=== PATIENT | female | born 1955 | race Caucasian/White ===

== ENCOUNTER 2016-09-15 09:54 | Emergency (ER) | payer BC ==
[2016-09-15 10:00] VITALS: RESP 18
--- NOTE | 2016-09-15 10:31 | ED ---
General Adult HPI - General Chief complaint: Headache Stated complaint: headache Time Seen by Provider: 09/15/16 10:08 Source: patient, RN notes reviewed Mode of arrival: ambulatory Limitations: no limitations - History of Present Illness Initial comments: Patient 61-year-old female who presents emergency room today with a chief complaint of rash to the right side of her face. She states she woke up 5 days ago with sharp type pain to the right side of her head. Does admit that she's been having sharp pain and discomfort with palpation to the right side. States it's very sensitive the skin. States she noticed a red spot to the right side of her scalp. States she's had a few other spots on the right side down the bishop. She states she scratched appointment did go away. She states that she is on prednisone due to history of sarcoidosis. Patient states she is unsure if this is related. Patient admits that she's had headaches similar to this in the past. Admits to a sharp type pain that comes and goes. States she has a history of Tamika Montes unable take ibuprofen that she used to take for these headaches. She denies any other complaints or symptoms. Patient denies any recent fever, chills, shortness of breath, chest pain, back pain, abdominal pain, nausea or vomiting, numbness or tingling, dysuria or hematuria, constipation or diarrhea, visual changes, or any other complaints. - Related Data Home Medications Medication Instructions Recorded Confirmed Acetaminophen [Tylenol] 1,000 mg PO Q6H PRN 09/15/16 09/15/16 Alendronate Sodium [Fosamax] 70 mg PO SA 09/15/16 09/15/16 Apixaban [Eliquis] 5 mg PO BID 09/15/16 09/15/16 Atorvastatin [Lipitor] 40 mg PO HS 09/15/16 09/15/16 Calcium Carbonate/Vitamin D3 1 tab PO BID 09/15/16 09/15/16 [Calcium 600-Vit D3 400 Caplet] Losartan Potassium [Cozaar] 12.5 mg PO DAILY 09/15/16 09/15/16 Magnesium Chloride [Mag64] 64 mg PO DAILY 09/15/16 09/15/16 Metoprolol Succinate [Toprol XL] 25 mg PO DAILY 09/15/16 09/15/16 Mycophenolate Mofetil [Cellcept] 1,500 mg PO BID 09/15/16 09/15/16 Spironolactone [Aldactone] 25 mg PO Q48H 09/15/16 09/15/16 metFORMIN HCL 1,000 mg PO DAILY 09/15/16 09/15/16 predniSONE 10 mg PO DAILY 09/15/16 09/15/16 Previous Rx's Medication Instructions Recorded Acetaminophen-Codeine 300-30mg 1 each PO Q6H PRN #10 tablet 09/15/16 [Tylenol #3] Cephalexin [Keflex] 500 mg PO Q12HR 10 Days 09/15/16 Allergies Allergy/AdvReac Type Severity Reaction Status Date / Time azithromycin Allergy Unknown Verified 09/15/16 10:01 hydrocodone bitartrate Allergy Hallucinati Verified 09/15/16 10:01 [From Lortab] ons levofloxacin [From Levaquin] Allergy Unknown Verified 09/15/16 10:01 Penicillins Allergy Rash/Hives Verified 09/15/16 10:01 Quinolones Allergy Unknown Verified 09/15/16 10:01 Sulfa (Sulfonamide Allergy Rash/Hives Verified 09/15/16 10:01 Antibiotics) tetracycline [Tetracycline] Allergy throat Verified 09/15/16 10:01 swelling Tetracyclines Allergy Unknown Verified 09/15/16 10:01 QT prolonging drugs Allergy Unknown Uncoded 09/15/16 10:01 Review of Systems ROS Statement: Those systems with pertinent positive or pertinent negative responses have been documented in the HPI. ROS Other: All systems not noted in ROS Statement are negative. Past Medical History Past Medical History: Asthma, Heart Failure, Hypertension, Osteoarthritis (OA) Additional Past Medical History / Comment(s): pacemaker, sarcoditis. History of Any Multi-Drug Resistant Organisms: None Reported Past Surgical History: AICD, Pacemaker, Tonsillectomy, Tubal Ligation Additional Past Surgical History / Comment(s): ractal surgery Past Anesthesia/Blood Transfusion Reactions: No Reported Reaction Type of Cardiac Device: Unknown Device Placement Date:: 07/29/2012 Past Psychological History: Depression Smoking Status: Never smoker Past Alcohol Use History: None Reported Past Drug Use History: None Reported General Exam - General Exam Comments Initial Comments: General: The patient is awake and alert, in no distress, and does not appear acutely ill. Eye: Pupils are equal, round and reactive to light, extra-ocular movements are intact. No nystagmus. There is normal conjunctiva bilaterally. No signs of icterus. Ears, nose, mouth and throat: There are moist mucous membranes and no oral lesions. Neck: The neck is supple, there is no tenderness or JVD. Cardiovascular: There is a regular rate and rhythm. No murmur, rub or gallop is appreciated. Respiratory: Lungs are clear to auscultation, respirations are non-labored, breath sounds are equal. No wheezes, stridor, rales, or rhonchi. Gastrointestinal: Soft, non-distended, non-tender abdomen without masses or organomegaly noted. There is no rebound or guarding present. No CVA tenderness. Bowel sounds are unremarkable. Musculoskeletal: Normal ROM, no tenderness. Strength 5/5. Sensation intact. Pulses equal bilaterally 2+. Neurological: A&O x 3. CN II-XII intact, There are no obvious motor or sensory deficits. Coordination appears grossly intact. Speech is normal. Skin: Red raised areas 1 to the right scalp measuring approximately a centimeter and half. A few scattered spots on the right side going down to the right side of the chin area. He is tender on palpation Psychiatric: Cooperative, appropriate mood & affect, normal judgment. Limitations: no limitations Course Vital Signs 09/15/16 09:55 Temperature 97.6 F Pulse Rate 77 Respiratory 18 Rate Blood Pressure 132/79 O2 Sat by Pulse 96 Oximetry Medical Decision Making - Medical Decision Making Case was discussed and seen by attending physician Dr. Ryan. Patient will be given pain medication here in the emergency room for her headache. Options were discussed about IV/IM medication versus oral. She stopped to take oral medications states she would like to try Tylenol codeine. She will be given a short prescription. She also placed on antibiotics cover for infection. Patient is advised follow-up the family doctor. She states she has an appointment tomorrow morning. Patient advised return for any other concerns. Disposition Clinical Impression: Headache, Rash Disposition: HOME SELF-CARE Condition: Good Instructions: Acute Headache (ED) Additional Instructions: Please use medication as discussed. Please follow-up with family doctor tomorrow with scheduled appointment. Please return to emergency room if the symptoms increase or worsen or for any other concerns. Prescriptions: Acetaminophen-Codeine 300-30mg [Tylenol #3] 1 each PO Q6H PRN #10 tablet PRN Reason: Pain Cephalexin [Keflex] 500 mg PO Q12HR 10 Days Time of Disposition: 11:19
[2016-09-15] MEDS ORDERED: ACET/COD 300 MG/30 MG STARTER PACK 6 TAB BTL PO STA (11:14)
[2016-09-15 11:35] VITALS: BP 130/80; PULSE 72; TEMP 97
== END 2016-09-15 11:34 | disposition home or self-care (01) ==
LOC: EC 09:54
DX: R51 Headache (principal); R21 Rash and other nonspecific skin eruption; M19.90 Unspecified osteoarthritis, unspecified site; I50.9 Heart failure, unspecified; I10 Essential (primary) hypertension; D86.9 Sarcoidosis, unspecified; Z79.899 Other long term (current) drug therapy; Z95.0 Presence of cardiac pacemaker; Z79.01 Long term (current) use of anticoagulants; Z79.84 Long term (current) use of oral hypoglycemic drugs; Z88.0 Allergy status to penicillin; Z88.2 Allergy status to sulfonamides; Z88.8 Allergy status to other drugs, medicaments and biological substances; Z88.1 Allergy status to other antibiotic agents; Z88.5 Allergy status to narcotic agent
CPT/HCPCS: 99283

== ENCOUNTER → 2017-04-03 | Outpatient (CLI) | payer BC ==
--- NOTE | 2017-04-03 13:58 | XR ---
EXAMINATION TYPE: XR knee complete bilateral DATE OF EXAM: 04/03/2017 COMPARISON: NONE HISTORY: Bilateral knee pain TECHNIQUE: 3 views knees each FINDINGS: There is medial femoral condylar and tibial plateau spurring at the right knee joint space. Moderate narrowing is present of the joint space. There is a small amount spurring from the medial tibial plateau left knee. Mild narrowing of the join t space is present. No joint effusions are evident. No acute fractures are evident. IMPRESSION: 1. Mild medial compartment degenerative changes, right greater than left.
== END | disposition home or self-care (01) ==
LOC: RADXRYALE 13:08
PROVIDERS: ATTEND Internal Medicine
DX: M25.862 Other specified joint disorders, left knee (principal); M25.861 Other specified joint disorders, right knee; M25.561 Pain in right knee; M25.562 Pain in left knee

== ENCOUNTER 2019-03-02 04:50 | Emergency (ER) | payer MEDICARE ==
[2019-03-02 05:00] VITALS: TEMP 98.2
[2019-03-02 05:24] LABS: Basophils # (A) 0.1 k/uL (0-0.2); Basophils % (A) 1 %; Eosinophils # (A) 0.2 k/uL (0-0.7); Eosinophils % (A) 2 %; HCT 41.2 % (34.0-46.0); Lymphocytes # (A) 0.8 k/uL (1.0-4.8); Lymphocytes % (A) 8 %; MCHC 31.6 g/dL (31.0-37.0); MCV 85.6 fL (80.0-100.0); Mean Platelet Volume 7.5; Monocytes # (A) 0.5 k/uL (0-1.0); Monocytes % (A) 5 %; Neutrophils # (A) 8.8 k/uL (1.3-7.7); Neutrophils % (A) 84 %; Platelet Count 201 k/uL (150-450); RBC 4.81 m/uL (3.80-5.40); RDW 15.4 % (11.5-15.5); WBC 10.5 k/uL (3.8-10.6)
[2019-03-02 05:33] LABS: Albumin 4.4 g/dL (3.5-5.0); Calcium 10.3 mg/dL (8.4-10.2); Magnesium 1.7 mg/dL (1.6-2.3); Potassium 3.9 mmol/L (3.5-5.1); Total Bilirubin 0.8 mg/dL (0.2-1.3); Total Protein 7.2 g/dL (6.3-8.2)
--- NOTE | 2019-03-02 05:38 | CT ---
EXAM: CT Head Without Intravenous Contrast CLINICAL HISTORY: ITS.REASON CT Reason: Pain TECHNIQUE: Axial computed tomography images of the head/brain without intravenous contrast. CTDI is 45.2 mGy and DLP is 999.3 mGy-cm. This CT exam was performed using one or more of the following dose reduction techniques: automated exposure control, adjustment of the mA and/or kV according to patient size, and/or use of iterative reconstruction technique. COMPARISON: None. FINDINGS: Brain: Unremarkable. No hemorrhage. No significant white matter disease. No edema. Ventricles: Unremarkable. No ventriculomegaly. Bones/joints: Unremarkable. No acute fracture. Soft tissues: Small left parietal scalp hematoma. Sinuses: Unremarkable as visualized. No acute sinusitis. Mastoid air cells: Unremarkable as visualized. No mastoid effusion. IMPRESSION: 1. No intracranial hemorrhage or other acute intracranial abnormality. 2. Small left parietal scalp hematoma. EXAM: CT Cervical Spine Without Intravenous Contrast CLINICAL HISTORY: ITS.REASON CT Reason: Pain TECHNIQUE: Axial computed tomography images of the cervical spine without intravenous contrast. CTDI is 13.2 mGy and DLP is 297.6 mGy-cm. This CT exam was performed using one or more of the following dose reduction techniques: automated exposure control, adjustment of the mA and/or kV according to patient size, and/or use of iterative reconstruction technique. COMPARISON: None. FINDINGS: Vertebrae: Unremarkable. No acute fracture. Discs/spinal canal/neural foramina: Multilevel degenerative change throughout the cervical spine which yields varying degrees of foraminal narrowing. No high-grade spinal canal stenosis. Soft tissues: Unremarkable. Thyroid: Left thyroid hypodense nodule measuring 1.8 cm. IMPRESSION: 1. No fracture or traumatic malalignment of the cervical spine. 2. Left thyroid hypodense nodule measuring 1.8 cm. Consider evaluation with dedicated thyroid ultrasound as clinically warranted.
--- NOTE | 2019-03-02 05:40 | XR ---
EXAM: XR Chest, 2 Views CLINICAL HISTORY: ITS.REASON XR Reason: syncope TECHNIQUE: Frontal and lateral views of the chest. COMPARISON: Chest radiograph 08/31/2015. FINDINGS: Lungs: Unremarkable. No consolidation. Pleural space: Unremarkable. No pneumothorax. Heart: Cardiomegaly. Mediastinum: Unremarkable. Bones/joints: Degenerative changes seen in the thoracic spine. Tubes, lines and devices: Cardiac pacing device. IMPRESSION: 1. No acute cardiopulmonary abnormality. 2. Cardiomegaly.
--- NOTE | 2019-03-02 07:15 | ED ---
Syncope HPI - General Chief Complaint: Fall Stated Complaint: Fall Time Seen by Provider: 03/02/19 05:00 Source: patient, EMS Mode of arrival: ambulatory - History of Present Illness Initial Comments: This patient is 63-year-old woman who presents after she had a syncopal episode at work. The patient states she does have a pacer/AICD device related to disordered heart rhythm. She states that she had been at work and then felt like she was going to pass out. She has had this happen before the last time was approximately 2-3 years ago. She states that she felt very lightheaded. She attempted to wean over something and then woke up on the floor. She denies significant injury in the fall. She is not experiencing chest pain, dyspnea, palpitations, diaphoresis or nausea. She did not experience a shock sensation. MD Complaint: loss of consciousness, collapsed -: minutes(s) Prodromal Symptoms: lightheaded -: second(s) Witnessed: yes - by bystander Injuries Sustained Associated with Event: None Current Symptoms: none, back to baseline History: pacemaker, AICD Context: during exertion Treatments Prior to Arrival: none - Related Data Home Medications Medication Instructions Recorded Confirmed Apixaban [Eliquis] 5 mg PO BID 09/15/16 03/02/19 Calcium Carbonate/Vitamin D3 1 tab PO BID 09/15/16 03/02/19 [Calcium 600-Vit D3 400 Caplet] Losartan Potassium [Cozaar] 25 mg PO DAILY 09/15/16 03/02/19 Magnesium Chloride [Mag64] 64 mg PO DAILY 09/15/16 03/02/19 Spironolactone [Aldactone] 25 mg PO Q48H 09/15/16 03/02/19 Metoprolol Succinate [Toprol XL] 50 mg PO DAILY 03/02/19 03/02/19 Allergies Allergy/AdvReac Type Severity Reaction Status Date / Time azithromycin Allergy Unknown Verified 03/02/19 07:41 hydrocodone bitartrate Allergy Hallucinati Verified 03/02/19 07:41 [From Lortab] ons levofloxacin [From Levaquin] Allergy Unknown Verified 03/02/19 07:41 Penicillins Allergy Rash/Hives Verified 03/02/19 07:41 Quinolones Allergy Unknown Verified 03/02/19 07:41 Sulfa (Sulfonamide Allergy Rash/Hives Verified 03/02/19 07:41 Antibiotics) tetracycline [Tetracycline] Allergy throat Verified 03/02/19 07:41 swelling Tetracyclines Allergy Unknown Verified 03/02/19 07:41 QT prolonging drugs Allergy Unknown Uncoded 09/15/16 10:01 Review of Systems ROS Statement: Those systems with pertinent positive or pertinent negative responses have been documented in the HPI. ROS Other: All systems not noted in ROS Statement are negative. Constitutional: Denies: fever, chills, weakness Eyes: Denies: vision change Respiratory: Denies: cough, dyspnea Cardiovascular: Reports: syncope. Denies: chest pain, palpitations, dyspnea on exertion, orthopnea, edema Gastrointestinal: Denies: abdominal pain, nausea, vomiting Genitourinary: Denies: dysuria, hematuria Musculoskeletal: Denies: back pain Skin: Denies: rash Neurological: Denies: headache, weakness, numbness Hematological/Lymphatic: Reports: easy bleeding Past Medical History Past Medical History: Asthma, Heart Failure, Hypertension, Osteoarthritis (OA) Additional Past Medical History / Comment(s): pacemaker, sarcoditis. History of Any Multi-Drug Resistant Organisms: None Reported Past Surgical History: AICD, Pacemaker, Tonsillectomy, Tubal Ligation Additional Past Surgical History / Comment(s): ractal surgery Past Anesthesia/Blood Transfusion Reactions: No Reported Reaction Type of Cardiac Device: Unknown Device Placement Date:: 07/29/2012 Past Psychological History: Depression Smoking Status: Never smoker Past Alcohol Use History: None Reported Past Drug Use History: None Reported General Exam General appearance: alert, in no apparent distress Head exam: Present: atraumatic, normocephalic, normal inspection Eye exam: Present: normal appearance, PERRL, EOMI. Absent: scleral icterus, conjunctival injection ENT exam: Present: normal oropharynx Neck exam: Present: normal inspection, full ROM. Absent: tenderness Respiratory exam: Present: normal lung sounds bilaterally. Absent: respiratory distress, wheezes, rales, rhonchi, stridor, chest wall tenderness Cardiovascular Exam: Present: regular rate, normal rhythm, normal heart sounds. Absent: systolic murmur, diastolic murmur, rubs, gallop GI/Abdominal exam: Present: soft. Absent: distended, tenderness, guarding, rebound, rigid, mass Extremities exam: Present: normal inspection, normal capillary refill. Absent: pedal edema, calf tenderness Back exam: Present: normal inspection. Absent: CVA tenderness (R), CVA tenderness (L) Neurological exam: Present: alert Skin exam: Present: warm, dry, intact, normal color. Absent: rash Course Vital Signs 03/02/19 03/02/19 03/02/19 04:54 04:55 05:00 Temperature 98.2 F Pulse Rate 95 92 Respiratory 16 16 Rate Blood Pressure 157/87 157/87 O2 Sat by Pulse 94 L 97 97 Oximetry 03/02/19 03/02/19 03/02/19 05:40 05:50 06:30 Temperature Pulse Rate 85 80 80 Respiratory 15 18 18 Rate Blood Pressure 141/90 139/90 146/101 O2 Sat by Pulse 95 95 95 Oximetry 03/02/19 07:00 Temperature Pulse Rate 82 Respiratory 22 Rate Blood Pressure 144/91 O2 Sat by Pulse 96 Oximetry EKG Findings - EKG Comments: EKG Findings:: The ECG shows what appears to be a paced rhythm approximately 91 bpm. - EKG Results: EKG: interpreted by TYRON Medical Decision Making - Medical Decision Making Patient is a 63-year-old woman presenting after she had a syncopal episode and a fall with minor closed head injury. I had attempted to contact the field laborer regarding an interrogation of her [employer] device, which is a Yodo1 model 148g. The patient stated that she was feeling better and wanted to go home, and did not want to stay for device interrogation. I suspect that it may have fired though the patient does not recall a definite shock. The device does appear to be pacing well here. She is counseled to return should she experience any recurrence of any of her symptoms. She states that she does have a follow-up appointment at [facility] to have the device interrogated within this weeks. - Lab Data Result diagrams: 03/02/19 05:00 03/02/19 05:00 Lab Results 03/02/19 03/02/19 03/02/19 Range/Units 05:00 05:00 05:00 WBC 10.5 (3.8-10.6) k/uL RBC 4.81 (3.80-5.40) m/uL Hgb 13.0 (11.4-16.0) gm/dL Hct 41.2 (34.0-46.0) % MCV 85.6 (80.0-100.0) fL MCH 27.0 (25.0-35.0) pg MCHC 31.6 (31.0-37.0) g/dL RDW 15.4 (11.5-15.5) % Plt Count 201 (150-450) k/uL Neutrophils % 84 % Lymphocytes % 8 % Monocytes % 5 % Eosinophils % 2 % Basophils % 1 % Neutrophils # 8.8 H (1.3-7.7) k/uL Lymphocytes # 0.8 L (1.0-4.8) k/uL Monocytes # 0.5 (0-1.0) k/uL Eosinophils # 0.2 (0-0.7) k/uL Basophils # 0.1 (0-0.2) k/uL Sodium 142 (137-145) mmol/L Potassium 3.9 (3.5-5.1) mmol/L Chloride 109 H (98-107) mmol/L Carbon Dioxide 22 (22-30) mmol/L Anion Gap 11 mmol/L BUN 21 H (7-17) mg/dL Creatinine 1.09 H (0.52-1.04) mg/dL Est GFR (CKD-EPI)AfAm 63 (>60 ml/min/1.73 sqM) Est GFR (CKD-EPI)NonAf 55 (>60 ml/min/1.73 sqM) Glucose 148 H (74-99) mg/dL Calcium 10.3 H (8.4-10.2) mg/dL Magnesium 1.7 (1.6-2.3) mg/dL Total Bilirubin 0.8 (0.2-1.3) mg/dL AST 17 (14-36) U/L ALT 14 (9-52) U/L Alkaline Phosphatase 86 (38-126) U/L Troponin I <0.012 (0.000-0.034) ng/mL Total Protein 7.2 (6.3-8.2) g/dL Albumin 4.4 (3.5-5.0) g/dL Disposition Clinical Impression: Syncope, Fall, Head injury Disposition: HOME SELF-CARE Condition: Undetermined Instructions (If sedation given, give patient instructions): Syncope (ED), Head Injury (ED) Is patient prescribed a controlled substance at d/c from ED?: No Referrals: Davina Barillas MD [Primary Care Provider] - 1-2 days Carroll Garner MD [STAFF PHYSICIAN] - 1-2 days
[2019-03-02 08:03] VITALS: BP 144/91; PULSE 82; RESP 22
== END 2019-03-02 08:05 | disposition home or self-care (01) ==
LOC: EC 04:50
DX: S09.90XA Unspecified injury of head, initial encounter (principal); R55 Syncope and collapse; I11.0 Hypertensive heart disease with heart failure; I50.9 Heart failure, unspecified; Z88.0 Allergy status to penicillin; Z88.1 Allergy status to other antibiotic agents; Z88.2 Allergy status to sulfonamides; Z88.5 Allergy status to narcotic agent; Z88.8 Allergy status to other drugs, medicaments and biological substances; Z79.01 Long term (current) use of anticoagulants; Z79.899 Other long term (current) drug therapy; Z95.0 Presence of cardiac pacemaker; Z86.79 Personal history of other diseases of the circulatory system; W17.89XA Other fall from one level to another, initial encounter; Y92.69 Other specified industrial and construction area as the place of occurrence of the external cause
CPT/HCPCS: 36415; 70450; 71046; 72125; 80053; 83735; 84484; 85025; 93005; 99285

== ENCOUNTER → 2019-03-18 | Outpatient (CLI) | payer MEDICARE ==
--- NOTE | 2019-03-19 08:37 | US ---
EXAMINATION TYPE: US thyroid st tissue head/neck DATE OF EXAM: 03/18/2019 COMPARISON: NONE CLINICAL HISTORY: E04.1 Thyroid nodule. Thyroid nodule GLAND SIZE: Right Lobe: 4.2 x 1.1 x 1.5 cm Overall Parenchyma: homogenous Left Lobe: 4.1 x 1.2 x 1.8 cm Overall Parenchyma: homogeneous Isthmus Thickness: 0.4 cm NODULES RIGHT: # of nodules measured on right: 0 LEFT: # of nodules measured on left: 1 1. 1.8 X 1.2 x 1.6 cm hypoechoic solid nodule at the mid/lower pole with well-defined margins. Thi s nodule is wider than tall and shows intranodular vascularity. Prior size: no prior ISTHMUS: # of nodules measured in the isthmus: 0 Bilateral neck scanned, no evidence of lymphadenopathy. IMPRESSION: Solitary TI-RADS 3 nodule on the left. Consensus recommendations are as follows: Mildly Suspicious: F NA if ? 2.5 cm; Follow if ? 1.5 cm.
== END | disposition home or self-care (01) ==
LOC: RADUSWWP 15:54
PROVIDERS: ATTEND Internal Medicine
DX: E04.1 Nontoxic single thyroid nodule (principal)
CPT/HCPCS: 76536

== ENCOUNTER → 2021-05-18 | Outpatient (CLI) | payer MEDICARE ==
--- NOTE | 2021-05-18 14:08 | XR ---
EXAMINATION TYPE: XR knee limited LT DATE OF EXAM: 05/18/2021 CLINICAL HISTORY: Pain. TECHNIQUE: Two views of the left knee are obtained. COMPARISON: Bilateral knee x-rays April 03, 2017 FINDINGS: There is no acute fracture/dislocation evident in left knee. Moderate narrowing medial tib iofemoral compartment with mild spurring redemonstrated. Mild to moderate narrowing and mild spurrin g patellofemoral compartment redemonstrated. Mild spurring lateral aspect lateral tibiofemoral compar tment redemonstrated. The overlying soft tissue appears unremarkable. IMPRESSION: As above. No significant change from 2017 x-ray.
--- NOTE | 2021-05-18 14:54 | XR ---
EXAMINATION TYPE: XR lumbosacral spine min 4V DATE OF EXAM: 05/18/2021 CLINICAL HISTORY: Low back pain. TECHNIQUE: Frontal, lateral, and oblique images of the lumbar spine are obtained. COMPARISON: MRI lumbar spine April 21, 2010 FINDINGS: There are 5 lumbar type vertebral bodies redemonstrated. Persistent sacralized left L5 seg ment. Persistent grade 1 retrolisthesis L1 on L2. Persistent llxygdfp-[id number] disc space narrowing at this level with vacuum disc phenomenon and endplate sclerosis along with moderate anterior spurrin g. Superior to this there is straightening of lumbar spine with [id number] multilevel disc spac e narrowing along with multilevel vacuum disc phenomenon. There is moderate anterior spurring T11-T12 and T12-L1 levels. Findings more prominent from 2010 MRI. Oblique images appear within normal limits . Mild to moderate vascular calcification overlying the abdominal aorta is noted. IMPRESSION: As above.
== END | disposition home or self-care (01) ==
LOC: RADXRYALE 13:35
PROVIDERS: ATTEND Internal Medicine
DX: M48.061 Spinal stenosis, lumbar region without neurogenic claudication (principal); M25.562 Pain in left knee
CPT/HCPCS: 72110

== ENCOUNTER → 2023-11-20 | Outpatient (CLI) | payer MEDICARE ==
--- NOTE | 2023-11-20 19:26 | US ---
EXAMINATION TYPE: US pelvic complete DATE OF EXAM: 11/20/2023 COMPARISON: NONE CLINICAL INDICATION: Female, 68 years old with history of N95.0 POSTMENOPAUSAL BLEEDING; pt. denies p ost-chelsea bleeding, has blood in urine and elevated creatinine levels TECHNIQUE: Transabdominal (TA). Transabdominal sonographic images of the pelvis were acquired. Pat ient unable to tolerate TV exam, modified to pelvic TA Date of LMP: post-chelsea EXAM MEASUREMENTS: Uterus: 7.0 x 3.5 x 5.5 cm Endometrial Stripe: 0.4 cm Right Ovary: obscured by bowel Left Ovary: obscured by bowel 1. Uterus: Anteverted heterogenous with calcifications throughout 2. Endometrium: wnl as visualized 3. Right Ovary: Obscured by overlying bowel gas 4. Left Ovary: Obscured by overlying bowel gas 5. Bilateral Adnexa: Obscured by overlying bowel gas 6. Posterior cul-de-sac: wnl exam limited by undistended bladder, bowel gas, and body habitus. Pt. Unable to tolerate TV exam IMPRESSION: 1. No evidence for acute process. 2. Endometrium within normal limits for thickness. 3. Heterogenous myometrial accident texture possibly representing degenerating calcified fibroids.
== END | disposition home or self-care (01) ==
LOC: RADUSWWP 08:36
PROVIDERS: ATTEND Internal Medicine
DX: N95.0 Postmenopausal bleeding (principal)
CPT/HCPCS: 76856

== ENCOUNTER → 2024-05-16 | Outpatient (CLI) | payer MEDICARE ==
--- NOTE | 2024-05-17 13:57 | MM ---
Reason for Exam: Screening (asymptomatic). Baseline mammogram. Patient History: Menarche at age 11. First Full-Term at age 19. Postmenopausal. Risk Values: Ludmila 5 year model risk: 1.4%. NCI Lifetime model risk: 4.4%. Prior Study Comparison: Patient's first Mammogram. No prior studies available for comparison. Tissue Density: The breasts are heterogeneously dense, which may obscure small masses. Findings: Analyzed By CAD. Asymmetric density upper outer left breast. Additional views are recommended. No suspicious calcifications seen. Pacer device limits portions of the study. Overall Assessment: Incomplete: need additional imaging evaluation, BI-RAD 0 Management: Diagnostic Mammogram of the left breast. . Patient should continue monthly self-breast exams. A clinical breast exam by your physician is recommended on an annual basis. This exam should not preclude additional follow-up of suspicious palpable abnormalities. Note on Ludmila scores and lifetime risk: 1. A Ludmila score greater than 3% is considered moderate risk. If this is the case, consider specialist referral to assess eligibility for a risk reducing agent. 2. If overall lifetime risk for the development of breast cancer is 20% or higher, the patient may qualify for future screening with alternating mammogram and breast MRI. [facility], , 05/17/2024 1:54 PM. Electronically signed and approved by: Ibrahima Fraire M.D. [facility]iolog[facility]
--- NOTE | 2024-05-24 08:14 | BD ---
EXAMINATION TYPE: Axial Bone Density DATE OF EXAM: 05/23/2024 CLINICAL HISTORY: 69 years old Female. ICD-10 CODE: N95.8 MENOPAUSAL AND PERIMENOPAUSAL DISORDER Height: 5 ft 1/2 in Weight: 167 FRAX RISK QUESTIONS: Alcohol (3 or more units per day): no Family History (Parent hip fracture): no Glucocorticoids (More than 3mos): yes (Ex: prednisone, prednisolone, methylprednisolone, dexamethasone, and hydrocortisone). History of Fracture in Adulthood: no Secondary Osteoporosis: 1. Type 1 Diabetes: no 2. Hyperthyroidism: no 3. Menopause before 45: no 4. Malnutrition: no 5. Chronic liver disease: no Rheumatoid Arthritis: no Current Tobacco Use: no RISK FACTORS HISTORY OF: Surgery to Spine/Hip(right/left)/Wrist (right/left): no MEDICATIONS: Thyroid Medications: none Osteoporosis Medications: none EXAM MEASUREMENTS: Bone mineral densitometry was performed using the Trellie System. Bone mineral density as measured about the Lumbar spine is: ----- L1-L4(G/cm2): 1.272 T Score Values are as follows: ----- L1: 2.7 ----- L2: 3.1 ----- L3: -0.4 ----- L4: -1.5 ----- L1-L4: 0.8 Z Score Values are as follows: ----- L1: 4.0 ----- L2: 4.4 ----- L3: 0.9 ----- L4: -0.3 ----- L1-L4: 2.0 baseline Bone mineral density about the R hip (g/cm2): 0.648 Bone mineral density about the L hip (g/cm2): 0.694 T Score values are as follows: -----R Neck: -2.5 -----L Neck: -2.8 -----R Total: -2.0 -----L Total: -1.8 Z Score values are as follows: -----R Neck: -1.1 -----L Neck: -1.4 -----R Total: -0.9 -----L Total: -0.7 baseline FRAX%s: The graph provided illustrates a 15.8 % chance for a major osteoporotic fx and a 4.3 % chance for the hips probability for fx in 10 years time. IMPRESSION: Osteopenia (T Score between -2.5 and -1). There is slightly increased risk of fracture and the patient may be considered for treatment. Re-Screen 2-5 years. NOTE: T-SCORE=SD OF THE YOUNG ADULT MEAN. [facility], , 05/24/2024 8:11 AM
== END | disposition home or self-care (01) ==
LOC: RADMAMWWP 14:49
PROVIDERS: ATTEND Internal Medicine
DX: N95.8 Other specified menopausal and perimenopausal disorders
CPT/HCPCS: 77067

== ENCOUNTER → 2024-05-29 | Outpatient (CLI) | payer MEDICARE ==
--- NOTE | 2024-05-29 15:32 | MM ---
Reason for Exam: Additional evaluation requested from abnormal screening. Last screening mammogram was performed less than 1 month ago. Patient History: Menarche at age 11. First Full-Term at age 19. Postmenopausal. Risk Values: Ludmila 5 year model risk: 1.4%. NCI Lifetime model risk: 4.4%. Prior Study Comparison: 05/16/2024 Bilateral MG screening mammo w CAD, [facility]. Tissue Density: Left: The breasts are heterogeneously dense, which may obscure small masses. Findings: Analyzed By CAD. Upon compression there is a persistent density which may be slightly improved and dispersed. However, ultrasound is recommended given the persistent finding. Cardiac device noted. There are vascular calcifications. Overall Assessment: Incomplete: need additional imaging evaluation, BI-RAD 0 Management: Diagnostic Breast Ultrasound of the left breast. . Results were given to the patient verbally at the time of exam. Patient should continue monthly self-breast exams. A clinical breast exam by your physician is recommended on an annual basis. This exam should not preclude additional follow-up of suspicious palpable abnormalities. Note on Ludmila scores and lifetime risk: 1. A Ludmila score greater than 3% is considered moderate risk. If this is the case, consider specialist referral to assess eligibility for a risk reducing agent. 2. If overall lifetime risk for the development of breast cancer is 20% or higher, the patient may qualify for future screening with alternating mammogram and breast MRI. [facility], , 05/29/2024 3:28 PM. Electronically signed and approved by: Doyle Castillo M.D. Radiologis
--- NOTE | 2024-05-30 08:15 | USB ---
Reason for Exam: Additional evaluation requested from abnormal screening. Patient History: Menarche at age 11. First Full-Term at age 19. Postmenopausal. Risk Values: Ludmila 5 year model risk: 1.4%. NCI Lifetime model risk: 4.4%. Technique: Method: Targeted. Prior Study Comparison: 05/16/2024 Bilateral MG screening mammo w CAD, [facility]. Findings: The upper outer quadrant of the left breast, the axilla of the left breast and the retroareolar of the left breast were scanned. Electronically signed and approved by: Sanchez Castanon DO
== END | disposition home or self-care (01) ==
LOC: RADMAMWWP 14:03
PROVIDERS: ATTEND Internal Medicine
CPT/HCPCS: 77061; 77065